=== PATIENT | male | born 1965 | race Caucasian/White ===

== ENCOUNTER → 2017-06-25 | Outpatient (CLI) | payer OTHER ==
--- NOTE | 2017-06-25 11:29 | RADIOLOGY REPORT (SQ) ---
EXAM DESCRIPTION: CT ABD/PELVIS WITH IV ORAL COMPLETED DATE/TIME: 06/25/2017 10:26 am REASON FOR STUDY: CECUM POLYP (D12.0), DISTAL SIGMOID COLON POLYP (D12.5) D12.5 BENIGN NEOPLASM OF SIGMOID COLON COMPARISON: None. TECHNIQUE: CT scan of the abdomen and pelvis performed using helical scanning technique with dynamic intravenous contrast injection. Patient drank Oral contrast. Images reviewed with lung, soft tissue, and bone windows. Reconstructed coronal and sagittal MPR images reviewed. Delayed images for evaluation of the urinary system also ac quired. All images stored on PACS. All CT scanners at this facility use dose modulation, iterative reconstruction, and/or weight based d osing when appropriate to reduce radiation dose to as low as reasonably achievable (ALARA). [facility]: Dose Right [facility]: CareDose [facility]: Dose Right [facility]: Teradose 4D [facility]: Adimab CONTRAST TYPE AND DOSE: contrast/concentration: Isovue 370.00 mg/ml; Total Contrast Delivered: 100.0 ml; Total Saline Delivered: 72.0 ml RENAL FUNCTION: Creatinine 0.9 RADIATION DOSE: Up-to-date CT equipment and radiation dose reduction techniques were employed. CTDIv ol: 10.1 - 11.8 mGy. DLP: 1207 mGy-cm.. LIMITATIONS: None. FINDINGS: LOWER CHEST: No significant findings. No nodules or infiltrates. LIVER: Normal size. No masses. No dilated ducts. SPLEEN: Normal size. No focal lesions. PANCREAS: No masses. No significant calcifications. No adjacent inflammation or peripancreatic fluid collections. Pancreatic duct not dilated. GALLBLADDER: No identified stones by CT criteria. No inflammatory changes to suggest cholecystitis. ADRENAL GLANDS: No significant masses or asymmetry. RIGHT KIDNEY AND URETER: No solid masses. No significant calcifications. No hydronephrosis or hyd roureter. LEFT KIDNEY AND URETER: No solid masses. No significant calcifications. No hydronephrosis or hydr oureter. AORTA AND VESSELS: No aneurysm. No dissection. Renal arteries, SMA, celiac without stenosis. RETROPERITONEUM: No retroperitoneal adenopathy, hemorrhage or masses. BOWEL AND PERITONEAL CAVITY: No masses or inflammatory changes. No free fluid or peritoneal masses. APPENDIX: Normal. PELVIS: No mass. No free fluid. Normal bladder. ABDOMINAL WALL: No masses. No hernias. BONES: No significant or acute findings. OTHER: No other significant finding. IMPRESSION: NO SIGNIFICANT OR ACUTE FINDING IN THE ABDOMEN OR PELVIS ON CT SCAN WITH IV CONTRAST. TECHNICAL DOCUMENTATION: JOB ID: [id number] Quality ID # [id number]: Final reports with documentation of one or more dose reduction techniques (e.g., Au tomated exposure control, adjustment of the mA and/or kV according to patient size, use of iterative reconstruction technique) 2010 [employer]- All Rights Reserved
== END ==
LOC: RAD 09:29
PROVIDERS: ATTEND Internal Medicine Gastroenterology
DX: D12.0 Benign neoplasm of cecum (principal); D12.5 Benign neoplasm of sigmoid colon
CPT/HCPCS: 74177; 82565

== ENCOUNTER → 2017-06-30 | Outpatient (CLI) | payer OTHER ==
--- NOTE | 2017-07-02 16:31 | RADIOLOGY REPORT (SQ) ---
EXAM DESCRIPTION: HAND BILATERAL 3 VIEWS COMPLETED DATE/TIME: 06/30/2017 4:46 pm REASON FOR STUDY: ARTHRITIS COMPARISON: None. NUMBER OF VIEWS: Three views of each hand. LIMITATIONS: None. FINDINGS: Right: Normal bone density. Old changes of open reduction internal fixation of proximal phalanx pinky finger. Mild flexion deformity at the PIP joint. No fracture, subluxation or dislocati on. No erosions. Joint spaces are maintained with grossly normal carpal alignment. Left: Normal bone density. No fracture or bone lesion. Joint spaces are generally relatively well preserved with normal carpal alignment. OTHER: No other significant finding. IMPRESSION: As above. TECHNICAL DOCUMENTATION: JOB ID: [id number]
== END ==
LOC: OD 16:08
PROVIDERS: ATTEND Obstetrics & Gynecology
DX: M19.042 Primary osteoarthritis, left hand (principal); M19.041 Primary osteoarthritis, right hand
CPT/HCPCS: 36415; 85652

== ENCOUNTER → 2017-08-30 | Outpatient (CLI) | payer OTHER ==
[2017-09-02 10:38] LABS: HEPATITIS C QUANTITATION HCV Not Detected IU/mL (.)
== END ==
LOC: OD 15:52
PROVIDERS: ATTEND Internal Medicine Gastroenterology
DX: B18.2 Chronic viral hepatitis C (principal); R74.0 Nonspecific elevation of levels of transaminase and lactic acid dehydrogenase [LDH]; D12.0 Benign neoplasm of cecum
CPT/HCPCS: 36415; 87522

== ENCOUNTER → 2017-10-01 | Outpatient (CLI) | payer OTHER ==
[2017-10-01 18:49] LABS: ALANINE AMINOTRANSFERASE 36 U/L (21-72); ALBUMIN 4.7 g/dL (3.5-5.0); ALKALINE PHOSPHATASE 69 U/L (38-126); ANION GAP 13 (5-19); ASPARTATE AMINO TRANSFERASE 25 U/L (17-59); BILIRUBIN,DIRECT 0.3 mg/dL (0.0-0.4); BILIRUBIN,TOTAL 0.4 mg/dL (0.2-1.3); BLOOD UREA NITROGEN 15 mg/dL (7-20); CALCIUM 9.9 mg/dL (8.4-10.2); CARBON DIOXIDE 28 mmol/L (22-30); CHLORIDE 106 mmol/L (98-107); CREATININE RESULT 0.99 mg/dL (0.52-1.25); GLUCOSE 86 mg/dL (75-110); POTASSIUM 5.3 mmol/L (3.6-5.0); TOTAL PROTEIN 7.3 g/dL (6.3-8.2)
== END ==
LOC: OD 17:47
PROVIDERS: ATTEND Physician Assistant Medical
DX: R06.02 Shortness of breath (principal)
CPT/HCPCS: 36415; 80053

== ENCOUNTER 2018-11-23 05:41 | Day surgery (SDC) | payer OTHER ==
[2018-11-16 10:12] LABS: HEMATOCRIT 38.8 % (37.9-51.0); HEMOGLOBIN 13.2 g/dL (13.5-17.0); MEAN CORPUSCULAR HEMOGLOBIN 28.5 pg (27.0-33.4); MEAN CORPUSCULAR VOLUME 84 fl (80-97); PLATELET COUNT 176 10^3/uL (150-450); RED BLOOD COUNT 4.62 10^6/uL (4.35-5.55); RED CELL DISTRIBUTION WIDTH 13.4 % (11.5-14.0)
[~2018-11-23 05:41] MED LIST: ACETAMINOPHEN 325 MG TABLET PO PRN; CEFAZOLIN 1 GM/D5W RTU 1 GM/50 ML RTUPB IV ONE; CEFAZOLIN 1 GM/D5W RTU 1 GM/50 ML RTUPB IV SCH; LACTATED RINGERS 1000 ML IV PRN; LIDOCAINE 0.5% INJ-PF (5 MG/ML) 50 ML SDV SUBCUT PRN
[2018-11-23] MEDS ORDERED: BUPIVACAINE HCL 0.25 % INJ/PF (2.5 MG/1 ML) 30 ML VIAL ONE (06:42)
[2018-11-23] MEDS ORDERED: HYDROMORPHONE HCL INJ/PF 2 MG/ML AMPULE ONE (06:54)
[2018-11-23] MEDS ORDERED: FENTANYL CITRATE INJ/PF 100 MCG/2 ML AMPUL ONE (06:54)
[2018-11-23] MEDS ORDERED: LIDOCAINE 2% INJ-PF (20 MG/ML) 10 ML AMPUL ONE (06:54)
[2018-11-23] MEDS ORDERED: MIDAZOLAM 2 MG/2 ML INJ ONE (06:54)
[2018-11-23] MEDS ORDERED: PROPOFOL INJ 200 MG/20 ML VIAL IV ONE (06:55)
[2018-11-23] MEDS ORDERED: ACETAMINOPHEN 1,000 MG/100 ML RTUPB IV ONE (06:55)
[2018-11-23] MEDS ORDERED: FENTANYL CITRATE INJ/PF 100 MCG/2 ML AMPUL IV PRN ×3 (07:54)
[2018-11-23] MEDS ORDERED: PROMETHAZINE HCL INJ 25 MG/1 ML VIAL IV PRN (07:54)
[2018-11-23] MEDS ORDERED: MEPERIDINE HCL/PF INJ 25 MG/1 ML DISP.SYRIN IV PRN (07:54)
[2018-11-23] MEDS ORDERED: DIPHENHYDRAMINE HCL 50 MG/ML VIAL IV PRN (07:54)
[2018-11-23] MEDS ORDERED: MORPHINE SULFATE 10 MG/ML INJ IV PRN (07:54)
[2018-11-23] MEDS: FENTANYL CITRATE INJ/PF 100 MCG/2 ML AMPUL ONE ×2 (08:57→09:02)
--- NOTE | 2018-11-23 08:57 | Discharge Summary ---
Discharge Summary (SDC) - Discharge Final Diagnosis: Supra umbilical hernia Date of Surgery: 11/23/18 Discharge Date: 11/23/18 Condition: Stable Treatment or Instructions: [facility] [address], [place] [address] Discharge Instructions: Laparoscopic Surgery 1. General Information: a. DO NOT DRIVE a car or operate dangerous machinery for 3-4 days or while taking narcotic pain pills. b. DO NOT consume alcohol, tranquilizers, sleeping medications or any non- prescribed medications for 24 hours unless approved by your doctor or as long as taking narcotic prescription medications. c. DO NOT make important decisions or sign any important papers for the first 24 hours after surgery. d. When discharged home the same day of surgery have a responsible person with you for the first night. 2. Activity Restrictions: 8 weeks. a. NO heavy lifting, straining abdominal muscles, bending over a lot, yard work, house work, or sports for [address] for 3-4 days or while taking percocet. c. It is fine to go for walks, up and down steps, ride in a car. d. Elevate your head when sleeping/resting. 3. Treatment: a. You may shower 24 hours after surgery, no baths or swimming for 2 weeks. Remove band-aids or dressings before shower but leave paper strips (steri-stri ps) on the skin to fall off on their own. If still on at postoperative visit they will be removed then. b. Drainage of fluid or blood is not unusual from an incision. If occurs, you can clean with peroxide and cotton ball daily and cover with dry gauze until the wound seals. c. If a lot of bleeding occurs, you can hold pressure with a gauze or cloth over the site for 10 minutes and it will usually stop. If bleeding continues you will need to call for possible evaluation in office or emergency room. 4. Medications: a. _Percocet_ may be taken for pain as needed, one tablets every 6 hours. Stop the narcotic when able since you cannot take it and drive, and they cause constipation. After Percocet presription is complete, you may take Toradol 10mg one pill by mouth every six hours as needed for pain. b. You should resume all normal medications unless a change is specified by your doctors. 5. Diet: Normal diet 6. The following may occur after laparoscopic surgery: a. Shoulder or upper back ache from retained gas that should resolve in 1-2 days b. Soreness and bruising at incision sites will resolve with time. c. Scrotal swelling (labia in women) and bruising is often seen after hernia surgery. d. Sore throat e. Fatigue may last days to weeks. f. Difficulty urinating may occur and may need to come into emergency room for urinary catheter placement. 7. Notify Physician If: a. Worsening or pain not improved with pain medication b. Persistent nausea and vomiting c. Fever above 101 d. Persistent bleeding or swelling at operative site e. Unable to urinate and uncomfortable bladder 6-8 hours after surgery 8..Follow Up Care: a. Schedule a follow up appointment with your doctor for 2 weeks. In the event of any postoperative problems or questions or you may call the office during business hours or the On-Call physician evenings and weekends at [facility]. [facility] I understand the instructions for my postoperative care as described above and a copy has been given to me. ___ Patient/Significant Other Witness Date Prescriptions: Ketorolac Tromethamine [Toradol 10 mg Tablet] 10 mg PO Q6HP PRN #15 tablet PRN Reason: Oxycodone HCl/Acetaminophen [Percocet 5-325 mg Tablet] 1 tab PO Q6 #15 tab Referrals: MCKENZIE SCANLON MD [Primary Care Provider] - Discharge Diet: As Tolerated Discharge Activity: No Lifting Over 10 Pounds, No Lifting/Push/Pulling, Walk Frequently Report the Following to Your Physician Immediately: Nausea, Vomiting, Increase in Pain, Fever over 101 Degrees, Unusual Bleeding, Redness, Drainage-Foul Smelling
--- NOTE | 2018-11-23 09:05 | Operative Report ---
Operative Report DATE OF SURGERY: 11/23/18 PREOPERATIVE DIAGNOSIS: ReCurrent abdominal wall hernia POSTOPERATIVE DIAGNOSIS: Same with scar tissue embedded in hernia sac OPERATION: 1. Laparoscopic debridement of scar tissue from hernia sac. 2. Transabdominal closure of fascial defect. 3. Intraperitoneal placement of Bard ventral light mesh 11.4 cm diameter SURGEON: RICH ZUÑIGA [employer] ATTENDANT: SAMANTA LUO ANESTHESIA: GA TISSUE REMOVED OR ALTERED: See below COMPLICATIONS: None ESTIMATED BLOOD LOSS: Scant INTRAOPERATIVE FINDINGS: See below PROCEDURE: The patient was taken from the preop holding area to the main operating room where general anesthesia was induced. Arms were abducted, abdomen prepped and draped in sterile fashion. Surgical plan surgical timeout were conducted Scars on the skin noted from previous laparoscopic surgery. The patient had a somewhat distorted, scarred umbilicus, and a masslike effect above the umbilicus. Numbing medicine 1% lidocaine was injected into the skin in the left upper quadrant left lower quadrant in the right lower quadrant. A Veress needle was inserted into the peritoneal cavity and left upper quadrant after making a stab wound with 11 blade. Pneumoperitoneum was established. Veress needle was removed, 5 mm port was established and a flexible 5 mm scope was inserted and under direct visualization 2 additional 5 mm ports were placed one on the left lower quadrant one in the right lower quadrant. Visualization of the peritoneal cavity revealed no evidence of visceral or vascular injury. The findings are significant for approximately 3 cm fascial defect above the umbilicus. Photos were taken. There was significant scar tissue and nonabsorbable suture at the level of the umbilicus consistent with previous surgery. We now proceeded to debulk the scar tissue and redundant fatty tissue in the inferior aspect of the hernia sac. This was accomplished by gentle traction and Electro cautery hook dissection. There was no evidence of mesh at this point. There may have been mesh inferior to this area but we never saw any foreign body. We debrided the scar tissue and fatty tissue, we now had exposure to the lateral edge which was raw but not bleeding. Photos were taken. We felt the primary closure transversely with transabdominal sutures will be appropriate. A kinza was made in the skin overlying the hernia, and using the percutaneous suture passer, 2 [id number] stitches were placed to close the fascial defect with #1 PDS suture. Knots were secured after pneumoperitoneum decompressed. This approximated the fascia satisfactorily. We now brought onto the field a non- 11.4 cm Bard ventral light mesh, oriented it in the appropriate direction, fixed it with 0 sutures at the 12, 3, 6, 9 o'clock position, rolled moistened it and brought up to the anterior abdominal wall. It was now splayed out in the peritoneal cavity, and then brought up against the anterior abdominal wall with the appropriate visceral side towards the viscera and the non-visceral side towards the peritoneum. Using the suture passer under direct visualization, suture was passed through the anterior abdominal wall at the respective 12, 3, 6, and 9:00 positions. Knots were secured after pneumoperitoneum decompressed. We then applied approximately 18 sure tack alex in a circumferential fashion. Mesh was opposed to the anterior abdominal wall in a satisfactory manner. Photos were taken. Inspection of the viscera revealed no injuries. We felt the operation was complete. Pneumoperitoneum was evacuated, ports removed, wounds closed with 3-0 Vicryl benzoin Steri-Strips. Patient was taken to recovery room, extubated, and and in stable condition. The physician special education educational assistant, Ms. Trevizo, provided assistance during this case by: Assisting and port insertion, retracting tissue, instillation of local anesthesia and closure of skin incisions.
[2018-11-23] MEDS ORDERED: OXYCODONE-ACETAMINOPHEN 5-325 MG TABLET PO PRN (09:34)
[2018-11-23] MEDS ORDERED: OXYCODONE-ACETAMINOPHEN 5-325 MG TABLET ONE (09:40)
[2018-11-23 12:15] VITALS: BP 121/75
[2018-11-23] MEDS ORDERED: ROCURONIUM BROMIDE INJ 50 MG/5 ML VIAL IV ONE (13:45)
[2018-11-23] MEDS ORDERED: DEXAMETHASONE SOD PHOSPHATE INJ 4 MG/1 ML VIAL ONE (13:45)
[2018-11-23] MEDS ORDERED: PHENYLEPHRINE HCL INJ/PF 10 MG/1 ML SDV ONE (13:45)
[2018-11-23] MEDS ORDERED: KETOROLAC TROMETHAMINE 60 MG/2 ML SDV ONE (13:45)
[2018-11-23] MEDS ORDERED: SUCCINYLCHOLINE CHLORIDE INJ 200 MG/10 ML VIAL ONE (13:45)
[2018-11-23] MEDS ORDERED: ONDANSETRON HCL INJ/PF 4 MG/2 ML SDV ONE (13:45)
== END 2018-11-23 10:45 | disposition home or self-care (01) ==
LOC: OROUT 05:41
PROVIDERS: ATTEND Surgery
DX: K43.0 Incisional hernia with obstruction, without gangrene (principal); L90.5 Scar conditions and fibrosis of skin; R01.1 Cardiac murmur, unspecified; F32.9 Major depressive disorder, single episode, unspecified; M19.90 Unspecified osteoarthritis, unspecified site; R06.02 Shortness of breath; Z86.19 Personal history of other infectious and parasitic diseases; Z79.82 Long term (current) use of aspirin; Q25.3 Supravalvular aortic stenosis
CPT/HCPCS: 36415; 85027; 49653; C1781; J2250; J0690; J3490 ×2; J1100; J1885; J3010; J1170; J2370; J0330; J2405; J2704; J0131; 752

== ENCOUNTER → 2019-03-31 | Outpatient (CLI) | payer OTHER ==
[2019-03-31 12:23] LABS: HEMATOCRIT 39.8 % (37.9-51.0); HEMOGLOBIN 13.3 g/dL (13.5-17.0); MEAN CORPUSCULAR HEMOGLOBIN 27.2 pg (27.0-33.4); MEAN CORPUSCULAR HGB CONC 33.4 g/dL (32.0-36.0); MEAN CORPUSCULAR VOLUME 82 fl (80-97); PLATELET COUNT 182 10^3/uL (150-450); RED BLOOD COUNT 4.89 10^6/uL (4.35-5.55); RED CELL DISTRIBUTION WIDTH 13.8 % (11.5-14.0); WHITE BLOOD COUNT 3.8 10^3/uL (4.0-10.5)
[2019-03-31 12:44] LABS: ALANINE AMINOTRANSFERASE 39 U/L (21-72); ALBUMIN 4.1 g/dL (3.5-5.0); ALKALINE PHOSPHATASE 48 U/L (38-126); ANION GAP 11 (5-19); ASPARTATE AMINO TRANSFERASE 24 U/L (17-59); BILIRUBIN,DIRECT 0.3 mg/dL (0.0-0.4); BILIRUBIN,TOTAL 0.5 mg/dL (0.2-1.3); BLOOD UREA NITROGEN 10 mg/dL (7-20); CALCIUM 9.3 mg/dL (8.4-10.2); CARBON DIOXIDE 29 mmol/L (22-30); CHLORIDE 100 mmol/L (98-107); GLUCOSE 101 mg/dL (75-110); POTASSIUM 4.1 mmol/L (3.6-5.0); SODIUM 140.4 mmol/L (137-145); TOTAL PROTEIN 6.9 g/dL (6.3-8.2)
== END ==
LOC: OD 11:23
PROVIDERS: ATTEND Obstetrics & Gynecology
DX: K52.9 Noninfective gastroenteritis and colitis, unspecified (principal); K62.5 Hemorrhage of anus and rectum
CPT/HCPCS: 36415; 80053; 83690; 85027

== ENCOUNTER → 2019-04-11 | Outpatient (CLI) | payer OTHER ==
[2019-04-11 11:29] LABS: ALANINE AMINOTRANSFERASE 30 U/L (21-72); ALBUMIN 4.6 g/dL (3.5-5.0); ALKALINE PHOSPHATASE 68 U/L (38-126); ASPARTATE AMINO TRANSFERASE 22 U/L (17-59); BILIRUBIN,DIRECT 0.3 mg/dL (0.0-0.4); BILIRUBIN,TOTAL 0.5 mg/dL (0.2-1.3); LIPASE 508.1 U/L (23-300); TOTAL PROTEIN 7.4 g/dL (6.3-8.2)
== END ==
LOC: OD 10:13
PROVIDERS: ATTEND Obstetrics & Gynecology
DX: Z11.59 Encounter for screening for other viral diseases (principal)
CPT/HCPCS: 36415; 80076; 83690

== ENCOUNTER → 2019-04-14 | Outpatient (CLI) | payer OTHER ==
[2019-04-14 09:48] LABS: ALANINE AMINOTRANSFERASE 31 U/L (21-72); ALBUMIN 4.4 g/dL (3.5-5.0); ALKALINE PHOSPHATASE 59 U/L (38-126); ANION GAP 11 (5-19); ASPARTATE AMINO TRANSFERASE 21 U/L (17-59); BILIRUBIN,DIRECT 0.2 mg/dL (0.0-0.4); BILIRUBIN,TOTAL 0.6 mg/dL (0.2-1.3); BLOOD UREA NITROGEN 14 mg/dL (7-20); CALCIUM 9.8 mg/dL (8.4-10.2); CARBON DIOXIDE 28 mmol/L (22-30); CHLORIDE 104 mmol/L (98-107); GLUCOSE 95 mg/dL (75-110); LIPASE 301.2 U/L (23-300); POTASSIUM 4.9 mmol/L (3.6-5.0); SODIUM 142.8 mmol/L (137-145); TOTAL PROTEIN 7.1 g/dL (6.3-8.2)
== END ==
LOC: OD 09:06
PROVIDERS: ATTEND Obstetrics & Gynecology
DX: R94.5 Abnormal results of liver function studies (principal)
CPT/HCPCS: 36415; 80053; 83690

== ENCOUNTER 2019-04-28 08:36 | Day surgery (SDC) | payer OTHER ==
[~2019-04-28 08:36] MED LIST changes: -ACETAMINOPHEN 325 MG TABLET PO PRN; -CEFAZOLIN 1 GM/D5W RTU 1 GM/50 ML RTUPB IV ONE; -CEFAZOLIN 1 GM/D5W RTU 1 GM/50 ML RTUPB IV SCH; -LACTATED RINGERS 1000 ML IV PRN; -LIDOCAINE 0.5% INJ-PF (5 MG/ML) 50 ML SDV SUBCUT PRN; +PROPOFOL INJ 200 MG/20 ML VIAL IV ONE
[2019-04-28 10:33] VITALS: BP 100/65
--- NOTE | 2019-04-28 11:26 | Operative Report ---
Operative Report DATE OF SURGERY: 04/28/19 Operative Report: The risks, benefits and alternatives of the procedure including the risk of bleeding, perforation requiring surgery have been explained to the patient in detail and informed consent has been obtained. The patient was brought back to the endoscopy suite and placed in the left, lateral decubital position. Timeout was called. Propofol medication is administered. A rectal examination is done which did not reveal any masses, tears or fissures. An Olympus videoscope was introduced into the patient's rectum. The scope was then carefully advanced all the way to the anastomotic site. Prep was good. The scope was then sequentially pulled back through the various distal segments of the colon. Retroflexion maneuvers performed. The risks benefits and alternatives of the procedure explained to the patient in detail and informed consent is obtained.A GIF Olympus video scope was inserted into the patient's mouth and hypopharynx, the esophagus is identified intubated and insufflated, the scope was then advanced through the esophagus stomach and duodenum, retroflexion maneuver is done ,the esophagus stomach and first and second portions of the duodenum examined. PREOPERATIVE DIAGNOSIS: Change in bowel habits. Blood in stool. Epigastric pain POSTOPERATIVE DIAGNOSIS: Irritation on the small bowel side of the anastomosis status post biopsy. Internal hemorrhoids. Gastritis status post biopsy rule out Helicobacter pylori OPERATION: Colonoscopy with biopsy. EGD with biopsy SURGEON: BEN BRENNER ANESTHESIA: LMAC TISSUE REMOVED OR ALTERED: As noted above. COMPLICATIONS: None. ESTIMATED BLOOD LOSS: None. INTRAOPERATIVE FINDINGS: As noted above. PROCEDURE: Patient tolerated the procedure well. No immediate postprocedure complications are noted. Patient is discharged in good condition. Discharge date 04/28/2019. Discharge diet: Regular. Discharge activity: Regular. 2 to 3-week follow-up to discuss findings. Patient is instructed to call the office or proceed to the emergency room should there be any further questions. 5-year surveillance colonoscopy.
== END 2019-04-28 10:42 | disposition home or self-care (01) ==
LOC: END 08:36
PROVIDERS: ATTEND Internal Medicine Gastroenterology
DX: K29.50 Unspecified chronic gastritis without bleeding (principal); R19.4 Change in bowel habit; K64.8 Other hemorrhoids; K52.9 Noninfective gastroenteritis and colitis, unspecified; Z80.0 Family history of malignant neoplasm of digestive organs; R10.13 Epigastric pain; Z79.82 Long term (current) use of aspirin; Z79.899 Other long term (current) drug therapy
CPT/HCPCS: 43239; 45380; 88305 ×2; J2704; 813

== ENCOUNTER 2019-08-01 23:07 | Observation (INO) | payer OTHER ==
[2019-08-02] MEDS ORDERED: ASPIRIN 81 MG TABLET, CHEWABLE PO ONE (00:07)
--- NOTE | 2019-08-02 00:12 | ER Document Report ---
HPI - HPI Patient complains to provider of: chest pain Time Seen by Provider: 08/01/19 23:51 Pain Level: 5 Context: 54-year-old male with a history of hypertension, aortic stenosis, sleep apnea, hyperlipidemia, atrial fibrillation rate controlled with metoprolol and anticoagulated with Eliquis, here for an episode of left-sided chest burning/ pain awoke him out of his sleep around 10:40 PM. He states it felt a little like reflux however he was more to the left than his usual central reflux pain. He states he then sat up out of bed after taking his CPAP machine off, and felt a little nauseous and dizzy so he asked his to bring him in for evaluation. He was recently placed on Eliquis and metoprolol about 2 weeks ago for new onset A. fib. He did have a stress test 1 week ago outpatient at [facility], pcp is dr scanlon, but does not know his results yet. He does follow with Dr. Rios, cardiology, in [place], [place]. He states they had to decrease his metoprolol dose in half last week because he was bradycardic. No other changes in medication or diet. Pt denies any other prior personal cardiac history. no syncope. no palpitations. no hx of mi, cva, tia, CHF, or cad. no ripping or tearing sensation. denies any other blood thinners. No prior history of blood clots. No recent long distance travel/immobilization, recent surgery, exogenous hormone use, hemoptysis, history of cancer, or calf pain/swelling. No prior history of arrhythmias. No other complaints at this time. no sp or dizziness currently. Associated Symptoms: Chest pain Exacerbated by: Sitting Relieved by: Remaining still Similar symptoms previously: No Recently seen / treated by doctor: Yes - ROS Systems Reviewed and Negative: Yes All other systems reviewed and negative - to include 10 systems unless mentioned in the hpi Past Medical History - General Information source: Patient - Social History Smoking Status: Former Smoker Chew tobacco use (# tins/day): No Frequency of alcohol use: None Drug Abuse: None Lives with: Spouse/Significant other Family History: Reviewed & Not Pertinent Patient has suicidal ideation: No Patient has homicidal ideation: No - Past Medical History Cardiac Medical History: Reports: Hx Atrial Fibrillation, Hx Hypercholester olemia, Hx Hypertension, Hx Heart Murmur - aortic stenosis-stable Denies: Hx Congestive Heart Failure, Hx Coronary Artery Disease, Hx DVT, Hx Heart Attack, Hx Peripheral Vascular Disease, Hx Pulmonary Embolism Pulmonary Medical History: Reports: Hx Sleep Apnea - compliant with cpap Denies: Hx Asthma, Hx Bronchitis, Hx COPD, Hx Pneumonia Neurological Medical History: Denies: Hx Cerebrovascular Accident, Hx Seizures Endocrine Medical History: Denies: Hx Diabetes Mellitus Type 1, Hx Diabetes Mellitus Type 2, Hx Hyperthyroidism, Hx Hypothyroidism Renal/ Medical History: Denies: Hx Kidney Stones Musculoskeletal Medical History: Denies Hx Arthritis Past Surgical History: Reports: Hx Orthopedic Surgery - Right small finger due to fracture.. Denies: Hx Pacemaker - Immunizations Immunizations up to date: Yes Hx Diphtheria, Pertussis, Tetanus Vaccination: Yes Vertical Provider Document - CONSTITUTIONAL Agree With Documented VS: Yes Exam Limitations: No Limitations General Appearance: WD/WN Notes: >>>> PHYSICAL_EXAM: GENERAL_APPEARANCE: well_nourished, alert, cooperative, no_acute_distress, no_obvious_discomfort. pleasant, middle aged white male, smiling, speaking in full sentences, in no sign of pain or resp distress, at bedside VITALS: reviewed, see vital signs table. HEAD: no_swelling\tenderness on the head. normocephalic. atraumatic. no andrea signs. no raccoons eyes. EARS: canals_clear_bilat, TMs_clear. EYES: PERRL, EOMI, conjunctiva_clear. NOSE: no_nasal_discharge. MOUTH: (-)decreased moisture. THROAT: no_tonsilar_inflammation, no_airway_obstruction. no_lymphadenopathy NECK: supple, no_neck_tenderness, (-)thyromegaly. full rom. full strength. no jvd. no carotid bruit. no meningeal signs. BACK: no_back_tenderness. CHEST_WALL: no_chest_tenderness. no overlying skin changes LUNGS: no_wheezing, ctab (-)accessory muscle use, good air exchange bilateral. HEART: normal_rate, normal_rhythm, ABDOMEN: normal_BS, soft, no_abd_tenderness, (-)guarding, (-)rebound, no_organomegaly, no distension or peritoneal signs. no cva ttp EXTREMITIES: strength 5/5 in all_extremities, good pulses in all_extremities, no_swelling\tenderness in the extremities, no_edema. full rom. normal gait. good pulses. brisk cap refill. 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 neg chito sign NEURO: motor and sensation intact, cranial nerves 2-12 intact, cerebellar fxn intact SKIN: warm, dry, good_color, no_rash. MENTAL_STATUS: speech_clear, oriented_X_3, normal_affect, responds_appropriately to questions. - INFECTION CONTROL TRAVEL OUTSIDE OF THE [place] IN LAST 30 DAYS: No Course - Re-evaluation Re-evalutation: 08/02/19 00:11 Pt here for now resolved chest pain, dizziness, nausea. and lasted briefly. His labs were unremarkable other than a mildly elevated CK. He is also slightly orthostatic. he was given fluids. He continued to remain asymptomatic. he is on Eliquis and metoprolol for atrial fibrillation. He endorses compliance with this. He had a stress test done last week however he does not know the results of this. I do not have access to these records for review either currently. He has follow-up August 23 with his PCP. Scallop Binder is Dr. Rios. He EKG was unremarkable per ED attending, Dr. Jenkins. He was in atrial fibrillation with a rate of 60 bpm on the monitor however. He was given the listed medications per triage protocol. Chest x-ray was negative per radiology and re viewed by myself. Patient informed of his findings. Case discussed with hospitalist, Dr. Weiss, who graciously agreed to admit the patient for further work-up and treatment. Care transferred to hospitalist in stable condition. Please refer to their note for further details of the visit. heart score: 4 On reexam, pt improved with tx listed. remained stable. nontoxic. well appearing. pain controlled. tolerating po. requesting to go home. case discussed with ER Attending, Dr. jenkins, who directed and agrees with plan of care and advised no further workup indicated at this time and pt is stable for dc home with close f/u with pcp/specialist. Documentation achieved through voice recording which may lead to some occasional accidental typographical errors. Extensive efforts have been made to proof read documentation to make sure these are the least as possible. 08/02/19 02:20 Category Date Time Status Continuous Cardiac Monitoring (ED) CONTINUOUS Care 08/02/19 00:07 Completed EKG Documentation STAT Care 08/01/19 23:09 Completed Orthostatic Vital Sign (ED) NOW Care 08/02/19 01:02 Ordered Oxygen (ED) Nasal Cannula 2 lpm Care 08/02/19 00:07 Active Pulse Oximeter Continuous (ED) CONTINUOUS Care 08/02/19 00:07 Active Saline Lock (ED) NOW Care 08/02/19 00:07 Active CHEST 2 VIEWS [RAD] Stat Exams 08/02/19 00:07 Ordered CBC WITH DIFF [HEME] Stat Lab 08/02/19 00:08 Completed COMPREHENSIVE METABOLIC PANEL [CHEM] Stat Lab 08/02/19 00:08 Received CREATINE KINASE MB [CHEM] Stat Lab 08/02/19 00:08 Received CREATINE KINASE [CHEM] Stat Lab 08/02/19 00:08 Received FREE T3 [CHEM] Stat Lab 08/02/19 01:02 Ordered LIPASE [CHEM] Stat Lab 08/02/19 00:08 Received MAGNESIUM [CHEM] Stat Lab 08/02/19 01:02 Ordered PROTHROMBIN TIME/INR [COAG] Stat Lab 08/02/19 00:08 Completed T4 [FREE T4 (FREE THYROXINE)] [CHEM] Stat Lab 08/02/19 01:02 Ordered THYROID STIMULATING HORMONE [CHEM] Stat Lab 08/02/19 01:02 Ordered TROPONIN I [CHEM] Stat Lab 08/02/19 00:08 Received TROPONIN I [CHEM] Stat Lab 08/02/19 04:07 Ordered URINALYSIS [URIN] Stat Lab 08/02/19 00:28 Uncollected Aspirin [Aspirin 81 mg Chewable Tablet] Med 08/02/19 00:07 Discontinued 324 mg PO NOW ONE Normal Saline 1000 ml [NaCl 0.9% 1000 ml IV Soln] 1,000 Med 08/02/19 01:31 Ordered ml IV BOLUS EKG ER ONLY [ER] Stat Oth 08/01/19 Active 08/02/19 02:23 08/02/19 02:48 - Vital Signs Vital signs: Temp Pulse Resp BP Pulse Ox 98.6 F 66 20 127/71 H 99 08/01/19 23:24 08/01/19 23:24 08/01/19 23:24 08/01/19 23:24 08/01/19 23:24 08/02/19 02:20 Temp Pulse Pulse Pulse Pulse Resp BP 08/02/19 01:19 64 60 61 08/02/19 00:07 08/02/19 00:01 19 124/76 08/02/19 00:00 21 H 08/01/19 23:47 22 H 08/01/19 23:24 98.6 F 66 20 BP BP BP BP Pulse Ox 08/02/19 01:19 132/93 H 120/78 122/74 08/02/19 00:07 98 08/02/19 00:01 100 08/02/19 00:00 100 08/01/19 23:47 98 08/01/19 23:24 127/71 H 99 - Laboratory Result Diagrams: 08/02/19 00:08 08/02/19 00:08 Laboratory results interpreted by me: 08/02/19 02:29 Category Date Time Status Continuous Cardiac Monitoring (ED) CONTINUOUS Care 08/02/19 00:07 Completed EKG Documentation STAT Care 08/01/19 23:09 Completed Orthostatic Vital Sign (ED) NOW Care 08/02/19 01:02 Ordered Oxygen (ED) Nasal Cannula 2 lpm Care 08/02/19 00:07 Active Pulse Oximeter Continuous (ED) CONTINUOUS Care 08/02/19 00:07 Active Saline Lock (ED) NOW Care 08/02/19 00:07 Active CHEST 2 VIEWS [RAD] Stat Exams 08/02/19 00:07 Ordered CBC WITH DIFF [HEME] Stat Lab 08/02/19 00:08 Completed COMPREHENSIVE METABOLIC PANEL [CHEM] Stat Lab 08/02/19 00:08 Received CREATINE KINASE MB [CHEM] Stat Lab 08/02/19 00:08 Received CREATINE KINASE [CHEM] Stat Lab 08/02/19 00:08 Received FREE T3 [CHEM] Stat Lab 08/02/19 01:02 Ordered LIPASE [CHEM] Stat Lab 08/02/19 00:08 Received MAGNESIUM [CHEM] Stat Lab 08/02/19 01:02 Ordered PROTHROMBIN TIME/INR [COAG] Stat Lab 08/02/19 00:08 Completed T4 [FREE T4 (FREE THYROXINE)] [CHEM] Stat Lab 08/02/19 01:02 Ordered THYROID STIMULATING HORMONE [CHEM] Stat Lab 08/02/19 01:02 Ordered TROPONIN I [CHEM] Stat Lab 08/02/19 00:08 Received TROPONIN I [CHEM] Stat Lab 08/02/19 04:07 Ordered URINALYSIS [URIN] Stat Lab 08/02/19 00:28 Uncollected Aspirin [Aspirin 81 mg Chewable Tablet] Med 08/02/19 00:07 Discontinued 324 mg PO NOW ONE Normal Saline 1000 ml [NaCl 0.9% 1000 ml IV Soln] 1,000 Med 08/02/19 01:31 Ordered ml IV BOLUS EKG ER ONLY [ER] Stat Oth 08/01/19 Active - Diagnostic Test Radiology reviewed: Image reviewed, Reports reviewed Radiology results interpreted by me: 08/02/19 02:20 Chest X-Ray 08/02/19 00:07 IMPRESSION: Clear lungs. - EKG Interpretation by Me EKG shows normal: Sinus rhythm Rate: Normal Rhythm: NSR - 66 bpm, borderline q waves, no stemi, reviewed by dr jenkins Discharge - Discharge Clinical Impression: Dizziness, Nausea, Orthostatic hypotension, History of atrial fibrillation, History of aortic stenosis Chest pain Qualifiers: Chest pain type: unspecified Qualified Code(s): R07.9 - Chest pain, unspecified Condition: Good Disposition: ADMITTED OBSERVATION Admitting Provider: Isela (Hospitalist) - agreed to accept the pt at 2:45am for further workup and tx Unit Admitted: Telemetry Referrals: MCKENZIE SCANLON MD [Primary Care Provider] - Follow up as needed
[2019-08-02 00:29] LABS: ABSOLUTE BASOPHILS # (AUTO) 0.1 10^3/uL (0.0-0.2); ABSOLUTE EOSINOPHILS # (AUTO) 0.2 10^3/uL (0.0-0.6); ABSOLUTE LYMPHOCYTES (AUTO) 2.4 10^3/uL (0.5-4.7); ABSOLUTE MONOCYTES (AUTO) 0.6 10^3/uL (0.1-1.4); ABSOLUTE NEUT (AUTO) 3.6 10^3/uL (1.7-8.2); BASOPHILS % (AUTO) 0.7 % (0-2); EOSINOPHILS % (AUTO) 2.7 % (0-6); HEMATOCRIT 38.8 % (37.9-51.0); HEMOGLOBIN 13.1 g/dL (13.5-17.0); LYMPHOCYTES % (AUTO) 34.5 % (13-45); MEAN CORPUSCULAR HGB CONC 33.8 g/dL (32.0-36.0); MEAN CORPUSCULAR VOLUME 83 fl (80-97); MONOCYTES % (AUTO) 8.7 % (3-13); PLATELET COUNT 187 10^3/uL (150-450); RED BLOOD COUNT 4.68 10^6/uL (4.35-5.55); RED CELL DISTRIBUTION WIDTH 13.6 % (11.5-14.0); SEGMENTED NEUTROPHILS % (AUTO) 53.4 % (42-78); TOTAL CELLS COUNTED % (AUTO) 100 %; WHITE BLOOD COUNT 6.8 10^3/uL (4.0-10.5)
[2019-08-02 00:37] LABS: INTERNATIONAL RATION (INR) 1.19; PROTHROMBIN TIME 15.1 SEC (11.4-15.4)
[2019-08-02 00:47] LABS: ALBUMIN 4.4 g/dL (3.5-5.0); ALKALINE PHOSPHATASE 60 U/L (38-126); ANION GAP 9 (5-19); ASPARTATE AMINO TRANSFERASE 25 U/L (17-59); BILIRUBIN,DIRECT 0.1 mg/dL (0.0-0.4); BILIRUBIN,TOTAL 0.4 mg/dL (0.2-1.3); BLOOD UREA NITROGEN 17 mg/dL (7-20); CALCIUM 9.5 mg/dL (8.4-10.2); CARBON DIOXIDE 27 mmol/L (22-30); CHLORIDE 103 mmol/L (98-107); CREATINE KINASE 285 U/L (55-170); GLUCOSE 103 mg/dL (75-110); POTASSIUM 3.8 mmol/L (3.6-5.0); TOTAL PROTEIN 6.8 g/dL (6.3-8.2)
[2019-08-02 00:58] LABS: CREATINE KINASE MB 1.52 ng/mL (<4.55); TROPONIN I < 0.012 ng/mL
[2019-08-02] MEDS ORDERED: NORMAL SALINE 1000 ML 1,000 ML IV ONE (01:31)
[2019-08-02 01:33] LABS: APPEARANCE,URINE CLEAR; BILIRUBIN,URINE NEGATIVE (NEGATIVE); COLOR,URINE YELLOW; GLUCOSE, URINE NEGATIVE (NEGATIVE); KETONES,URINE NEGATIVE (NEGATIVE); LEUKOCYTE ESTERASE,URINE NEGATIVE (NEGATIVE); NITRITE,URINE NEGATIVE (NEGATIVE); PROTEIN,URINE NEGATIVE (NEGATIVE); URINE SPECIFIC GRAVITY 1.017; UROBILINOGEN,URINE NEGATIVE mg/dL (<2.0)
--- NOTE | 2019-08-02 01:35 | RADIOLOGY REPORT (SQ) ---
CLINICAL HISTORY: cp COMPARISON: April 28, 2016. TECHNIQUE: XR CHEST 2 VIEWS 08/02/2019 12:07 AM CDT FINDINGS: Cardiac silhouette is normal in size. Lungs are clear without consolidation, atelectasis, mass or edema. There is no pleural effusion. There is no pneumothorax. There are no acute osseous findings. IMPRESSION: Clear lungs.
[2019-08-02 02:05] LABS: FREE T3 3.99 pg/mL (2.77-5.27); FREE T4 (FREE THYROXINE) 0.74 ng/dL (0.78-2.19)
[2019-08-02 02:19] LABS: THYROID STIMULATING HORMONE 2.18 uIU/mL (0.47-4.68)
[2019-08-02] MEDS ORDERED: NITROGLYCERIN 2% OINTMENT 1 GM PACKET TP ONE (02:40)
[2019-08-02] MEDS ORDERED: MAGNESIUM HYDROXIDE SUSP 30 ML UDCUP PO PRN (03:47)
[2019-08-02] MEDS ORDERED: MAG HYDROX/AL HYDROX/SIMETH SUSP 30 ML UDCUP PO PRN (03:47)
[2019-08-02] MEDS ORDERED: HYDRALAZINE HCL INJ/PF 20 MG/1 ML SDV IV PRN (03:47)
[2019-08-02] MEDS ORDERED: ACETAMINOPHEN 325 MG TABLET PO PRN (03:47)
[2019-08-02] MEDS ORDERED: MORPHINE SULFATE 10 MG/ML INJ IV PRN (03:47)
[2019-08-02] MEDS ORDERED: ONDANSETRON 4 MG TAB.RAPDIS PO PRN (03:48)
[2019-08-02] MEDS ORDERED: ONDANSETRON HCL INJ/PF 4 MG/2 ML SDV IV PRN (03:48)
--- NOTE | 2019-08-02 04:16 | PDOC H&P ---
History of Present Illness Admission Date/PCP: 08/02/19 02:57 MCKENZIE SCANLON MD Patient complains of: Chest pain History of Present Illness: INGRID NAIK is a 54 year old male who presented to the emergency room with acute chest pain. Patient admits that he woke from sleep at 22:40 with the tomlinson dden onset of a burning pain in his left central chest. The pain was continuous and of moderate to severe intensity without radiation. The pain was accompanied by acute mild nausea, dyspnea and dizziness/lightheadedness with assuming the sitting position. He admits similar prior symptoms with his gastroesophageal reflux disease although the location of the chest pain is different (lower and more leftward) than his typical reflux pain symptoms. He admits that his nausea and dizziness/lightheadedness ("like I was going to pass out") were worsened by assuming the upright sitting position and relieved by lying flat. He has not identified any aggravating or ameliorating factors for his chest pain. In the emergency room he was found to have an EKG and cardiac enzymes which showed no evidence of acute myocardial ischemia or injury. Patient was subsequently admitted to observation status for further evaluation and treatment. Past Medical History Cardiac Medical History: Reports: Atrial Fibrillation, Hyperlipidema, Hypertension, Heart Murmur - aortic stenosis-stable, Other - Valvular heart disease Denies: Congestive Heart Failure, Coronary Artery Disease, DVT, Myocardial Infarction, Peripheral Vascular Disease, Pulmonary Embolism Pulmonary Medical History: Reports: Sleep Apnea - compliant with cpap Denies: Asthma, Bronchitis, Chronic Obstructive Pulmonary Disease (COPD), Pneumonia, Respiratory Failure, Tuberculosis EENT Medical History: Denies: Cataracts, Ears - Hearing aids Neurological Medical History: Denies: Hemorrhagic CVA, Ischemic CVA, Seizures Endocrine Medical History: Denies: Diabetes Mellitus Type 1, Diabetes Mellitus Type 2, Hyperthyroidism, Hypothyroidism Renal/ Medical History: Denies: Chronic Kidney Disease, Nephrolithiasis Malignancy Medical History: Reports: None GI Medical History: Reports: Gastroesophageal Reflux Disease Denies: Cirrhosis, Crohn's Disease, Hepatitis, Peptic Ulcer Disease, Ulcerative Colitis Musculoskeltal Medical History: Denies: Arthritis, Gout Skin Medical History: Denies: Eczema, Psoriasis Psychiatric Medical History: Reports: Tobacco Dependency Denies: Alcohol Dependency, Substance Abuse Traumatic Medical History: Reports: None Hematology: Denies: Anemia, Bleeding Tendencies Infectious Medical History: Reports: None Past Surgical History Past Surgical History: Reports: Herniorrhaphy, Orthopedic Surgery - Right 5th finger fracture repair., Other - Partial colectomy for excision of a colonic mass Social History Information Source: Patient Lives with: Spouse/Significant other Smoking Status: Former Smoker - Currently chews smokeless tobacco Frequency of Alcohol Use: Rare Hx Recreational Drug Use: No Drugs: None Hx Prescription Drug Abuse: No - Advance Directive Resuscitation Status: Full Code Surrogate healthcare decision maker:: Raquel Naik Family History Family History: CAD, DM, Hypertension, Other - Multiple sclerosis. denies: Malignancy Parental Family History Reviewed: Yes Children Family History Reviewed: No Sibling(s) Family History Reviewed.: Yes Medication/Allergy Home Medications: Aspirin [Aspirin 81 mg Chewable Tablet] 1 tab PO DAILY 11/11/18 Multivitamin,Ther and Minerals [Vitamin and Minerals] 1 tab PO DAILY 11/11/18 Rosuvastatin Calcium 10 mg PO QHS 11/11/18 Allergies/Adverse Reactions: chloraphil Allergy (Intermediate, Uncoded 08/01/19 23:09) Hives Review of Systems Constitutional: ABSENT: chills, fever(s) Eyes: ABSENT: visual disturbances, other - Eye pain Ears: ABSENT: hearing changes, other - Ear pain Nose, Mouth, and Throat: ABSENT: mouth pain, sore throat Cardiovascular: PRESENT: as per HPI, chest pain. ABSENT: dyspnea on exertion, edema, orthropnea, palpitations Respiratory: PRESENT: as per HPI, dyspnea. ABSENT: cough Gastrointestinal: PRESENT: as per HPI, nausea. ABSENT: abdominal pain, constipation, diarrhea, vomiting Genitourinary: ABSENT: dysuria, hematuria Musculoskeletal: ABSENT: back pain, joint swelling Integumentary: ABSENT: pruritus, rash Neurological: PRESENT: as per HPI, dizziness. ABSENT: confusion, convulsions, focal weakness, memory loss, syncope Psychiatric: ABSENT: anxiety, depression Endocrine: ABSENT: cold intolerance, heat intolerance Hematologic/Lymphatic: ABSENT: easy bleeding, easy bruising Allergic/Immunologic: ABSENT: seasonal rhinorrhea Physical Exam Vital Signs: Temp Pulse Resp BP Pulse Ox 98.6 F 61 19 122/74 98 08/01/19 23:24 08/02/19 01:19 08/02/19 00:01 08/02/19 01:19 08/02/19 00:07 Intake & Output 07/31/19 08/01/19 08/02/19 23:59 23:59 23:59 Weight 96.9 kg General appearance: ABSENT: no acute distress, cooperative Head exam: ABSENT: atraumatic, normocephalic Eye exam: PRESENT: conjunctiva pink. ABSENT: conjunctival injection, scleral icterus Ear exam: PRESENT: normal external ear exam. ABSENT: bleeding, drainage Mouth exam: PRESENT: dry mucosa, neck supple Neck exam: ABSENT: thyromegaly, tracheal deviation Respiratory exam: PRESENT: clear to auscultation stone, symmetrical, unlabored Cardiovascular exam: PRESENT: irregular rhythm - Irregularly irregular rate and rhythm, systolic murmur - Midsystolic crescendo decrescendo grade 3 murmur heard best at the aortic root with radiation to the neck. ABSENT: clicks, gallop, rubs Pulses: PRESENT: normal radial pulses, normal dorsalis pedis pul Vascular exam: PRESENT: normal capillary refill. ABSENT: pallor GI/Abdominal exam: PRESENT: normal bowel sounds, soft Rectal exam: PRESENT: deferred Extremities exam: ABSENT: joint swelling, pedal edema Musculoskeletal exam: ABSENT: deformity, dislocation Neurological exam: PRESENT: alert, oriented to person, oriented to place, oriented to time, oriented to situation, CN II-XII grossly intact. ABSENT: motor sensory deficit Psychiatric exam: PRESENT: appropriate affect, normal mood Skin exam: PRESENT: dry, intact, warm. ABSENT: jaundice, rash, urticaria Results Laboratory Results: 08/02/19 00:08 08/02/19 00:08 08/02/19 08/02/19 08/02/19 00:08 00:08 00:08 WBC 6.8 RBC 4.68 Hgb 13.1 L Hct 38.8 MCV 83 MCH 28.0 MCHC 33.8 RDW 13.6 Plt Count 187 Seg Neutrophils % 53.4 Sodium 139.1 Potassium 3.8 Chloride 103 Carbon Dioxide 27 Anion Gap 9 BUN 17 Creatinine 0.87 Est GFR ( Amer) > 60 Glucose 103 Calcium 9.5 Magnesium Total Bilirubin 0.4 AST 25 Alkaline Phosphatase 60 Total Protein 6.8 Albumin 4.4 Lipase 82.7 TSH Free T4 Free T3 pg/mL Urine Color Urine Appearance Urine pH Ur Specific [place] Urine Protein Urine Glucose (UA) Urine Ketones Urine Blood Urine Nitrite Ur Leukocyte Esterase Urine WBC (Auto) Urine RBC (Auto) 08/02/19 08/02/1908/02/19 00:08 00:08 01:08 WBC RBC Hgb Hct MCV MCH MCHC RDW Plt Count Seg Neutrophils % Sodium Potassium Chloride Carbon Dioxide Anion Gap BUN Creatinine Est GFR ( Amer) Glucose Calcium Magnesium 2.3 Total Bilirubin AST Alkaline Phosphatase Total Protein Albumin Lipase TSH 2.18 Free T4 0.74 L Free T3 pg/mL 3.99 Urine Color YELLOW Urine Appearance CLEAR Urine pH 6.0 Ur Specific [place] 1.017 Urine Protein NEGATIVE Urine Glucose (UA) NEGATIVE Urine Ketones NEGATIVE Urine Blood SMALL H Urine Nitrite NEGATIVE Ur Leukocyte Esterase NEGATIVE Urine WBC (Auto) 1 Urine RBC (Auto) 1 08/02/19 08/02/19 00:08 00:08 Creatine Kinase 285 H CK-MB (CK-2) 1.52 Troponin I < 0.012 Impressions: Chest X-Ray 08/02/19 00:07 IMPRESSION: Clear lungs. Assessment and Plan - Diagnosis (1) Chest pain Qualifiers: Chest pain type: unspecified Qualified Code(s): R07.9 - Chest pain, unspecified Is this a current diagnosis for this admission?: Yes Plan: Patient is admitted observation status on telemetry. Serial cardiac enzymes will be obtained to evaluate the patient's chest pain. Patient's pain will be treated with morphine sulfate 2 to 4 mg IV every 2 hours on an as needed basis per sliding scale. (2) Atrial fibrillation with controlled ventricular rate Is this a current diagnosis for this admission?: Yes Plan: Patient will be continued on his current medication for control of his atrial fibrillation ventricular rate as well as he has chronic anticoagulation. He will be observed on telemetry throughout his hospital course. (3) HLD (hyperlipidemia) Qualifiers: Hyperlipidemia type: unspecified Qualified Code(s): E78.5 - Hyperlipidemia, unspecified Is this a current diagnosis for this admission?: Yes Plan: Patient will be continued on his usual lipid therapy regiment and a cardiac diet. (4) HTN (hypertension) Qualifiers: Hypertension type: essential hypertension Qualified Code(s): I10 - Essential (primary) hypertension Is this a current diagnosis for this admission?: Yes Plan: Patient will be continued on his usual antihypertensive therapy and is blood pressure will be evaluated regularly with vital signs. - Time Time Spent with patient: 25-34 minutes Medications reviewed and adjusted accordingly: Yes Anticipated discharge: Home - Inpatient Certification Based on my medical assessment, after consideration of the patient's comorbidities, presenting symptoms, or acuity I expect that the services needed warrant INPATIENT care.: No I certify that my determination is in accordance with my understanding of Medicare's requirements for reasonable and necessary INPATIENT services [42 CFR 412.3e].: No Medical Necessity: Significant Comorbidiites Make Outpatient Treatment Too Risky, Need Close Monitoring Due to Risk of Patient Decompensation, Need For Continuous Telemetry Monitoring
[2019-08-02 04:52] LABS: CREATINE KINASE MB 1.32 ng/mL (<4.55); TROPONIN I < 0.012 ng/mL
--- NOTE | 2019-08-02 07:22 | EKG REPORT ---
SEVERITY:- BORDERLINE ECG - SINUS RHYTHM BORDERLINE INFERIOR Q WAVES : Confirmed by: Dimas Zeng MD 02-Aug-2019 07:22:05
[2019-08-02] MEDS: FAMOTIDINE 20 MG TABLET PO SCH ×2 (07:55→12:42)
[2019-08-02] MEDS: SUCRALFATE 1 GM TABLET PO SCH ×2 (07:55→12:41)
[2019-08-02] MEDS: METOCLOPRAMIDE HCL 10 MG TABLET PO SCH ×2 (07:55→12:42)
[2019-08-02] MEDS ORDERED: DOCUSATE SODIUM 100 MG CAPSULE PO SCH (10:00)
[2019-08-02] MEDS ORDERED: APIXABAN 5 MG TABLET PO SCH (10:00)
[2019-08-02] MEDS ORDERED: FAMOTIDINE 20 MG TABLET PO SCH (10:00)
[2019-08-02 11:00] LABS: TROPONIN I < 0.012 ng/mL
--- NOTE | 2019-08-02 11:40 | PDOC DISCHARGE SUMMARY ---
General - Admit/Disc Date/PCP Admission Date/Primary Care Provider: 08/02/19 02:57 MCKENZIE SCANLON MD Discharge Date: 08/02/19 - Additional Information Resuscitation Status: Full Code Discharge Diet: As Tolerated Discharge Activity: Activity As Tolerated Home Medications: Apixaban [Eliquis 5 mg Tablet] 5 mg PO BID 08/02/19 Rosuvastatin Calcium [Crestor 10 mg Tablet] 10 mg PO DAILY 08/02/19 History of Present Illness History of Present Illness: INGRID SOLIS is a 54 year old male Hospital Course Hospital Course: 54 years old white male with history of mild aortic stenosis. He was recently diagnosed with atrial fibrillation 2 weeks ago. He was started on metoprolol by his primary care physician. Dose initially was 50 mg daily then was decreased to 25 mg daily due to bradycardia. He was also started on Eliquis outpatient. He sees Dr. Rios of cardiology. Dr. Rios did a stress test a week ago but the patient does not know the results and assumes it was benign. Patient presents today for chest pain and for details please see H&P from today. He actually had similar presentation 2 weeks ago when he was diagnosed with atrial fibrillation. So far troponins are negative. He is bradycardic also. He will be discharged today in stable condition. He should follow-up with Dr. Rios. He is currently totally asymptomatic. We will stop metoprolol due to bradycardia. He still in A. fib. Discussed with patient in details and he is aware the plan and wants to go home. Physical Exam Vital Signs: Temp Pulse Resp BP Pulse Ox 98.4 F 50 L 15 118/71 100 08/02/19 08:07 08/02/19 08:07 08/02/19 08:07 08/02/19 08:07 08/02/19 08:07 Intake & Output 08/01/19 08/02/19 08/03/19 06:59 06:59 06:59 Intake Total 1000 Balance 1000 Weight 216 lb 0.848 oz Exam: Patient is no acute distress Alert oriented to time place person No anxiety or depression Head: atraumatic normocephalic Pupils: are equal reactive Neck: is supple and trachea is central no lymphadenopathy No pharyngeal erythema or exudates Heart: Irregular rhythm Lungs: clear no distress Abdomen: nontender nondistended Neurological exam: unremarkable Musculoskeletal: No joint swelling or effusion chronic lower back pain and tenderness No suicidal or homicidal ideation Results Laboratory Results: 08/02/19 00:08 08/02/19 00:08 08/02/19 08/02/19 08/02/19 00:08 00:08 00:08 WBC 6.8 RBC 4.68 Hgb 13.1 L Hct 38.8 MCV 83 MCH 28.0 MCHC 33.8 RDW 13.6 Plt Count 187 Seg Neutrophils % 53.4 Sodium 139.1 Potassium 3.8 Chloride 103 Carbon Dioxide 27 Anion Gap 9 BUN 17 Creatinine 0.87 Est GFR ( Amer) > 60 Glucose 103 Calcium 9.5 Magnesium Total Bilirubin 0.4 AST 25 Alkaline Phosphatase 60 Total Protein 6.8 Albumin 4.4 Lipase 82.7 TSH Free T4 Free T3 pg/mL Urine Color Urine Appearance Urine pH Ur Specific [place] Urine Protein Urine Glucose (UA) Urine Ketones Urine Blood Urine Nitrite Ur Leukocyte Esterase Urine WBC (Auto) Urine RBC (Auto) 08/02/19 08/02/19 08/02/19 00:08 00:08 01:08 WBC RBC Hgb Hct MCV MCH MCHC RDW Plt Count Seg Neutrophils % Sodium Potassium Chloride Carbon Dioxide Anion Gap BUN Creatinine Est GFR ( Amer) Glucose Calcium Magnesium 2.3 Total Bilirubin AST Alkaline Phosphatase Total Protein Albumin Lipase TSH 2.18 Free T4 0.74 L Free T3 pg/mL 3.99 Urine Color YELLOW Urine Appearance CLEAR Urine pH 6.0 Ur Specific [place] 1.017 Urine Protein NEGATIVE Urine Glucose (UA) NEGATIVE Urine Ketones NEGATIVE Urine Blood SMALL H Urine Nitrite NEGATIVE Ur Leukocyte Esterase NEGATIVE Urine WBC (Auto) 1 Urine RBC (Auto) 1 08/02/19 08/02/19 08/02/19 00:08 00:08 04:10 Creatine Kinase 285 H CK-MB (CK-2) 1.52 1.32 Troponin I < 0.012 < 0.012 08/02/19 08/02/19 08/02/19 04:10 09:53 09:53 Creatine Kinase 248 H 265 H CK-MB (CK-2) 1.60 Troponin I < 0.012 Impressions: Chest X-Ray 08/02/19 00:07 IMPRESSION: Clear lungs. Qualifiers - * PATIENT BEING DISCHARGED WITH ANY OF THE FOLLOWING DIAGNOSIS: No Acute Heart Failure - Is this a Heart Failure Patient?: No
[2019-08-02 12:41] VITALS: BP 139/49
== END 2019-08-02 13:00 | disposition home or self-care (01) ==
LOC: ER 23:07 → EH 08-02 02:57 → 4N 08-02 03:48
PROVIDERS: ADMIT Emergency Medicine; ATTEND Emergency Medicine
DX: I48.91 Unspecified atrial fibrillation (principal); R07.9 Chest pain, unspecified; E78.5 Hyperlipidemia, unspecified; I10 Essential (primary) hypertension; I35.0 Nonrheumatic aortic (valve) stenosis; R00.1 Bradycardia, unspecified; R11.0 Nausea; G47.30 Sleep apnea, unspecified; F17.220 Nicotine dependence, chewing tobacco, uncomplicated; Z90.49 Acquired absence of other specified parts of digestive tract; Z82.49 Family history of ischemic heart disease and other diseases of the circulatory system; Z79.82 Long term (current) use of aspirin; Z79.02 Long term (current) use of antithrombotics/antiplatelets; Z79.899 Other long term (current) drug therapy
CPT/HCPCS: 93005; 99285; 96360; 96361; 36415; 84439; 82553; 82550; 83690; 83735; 84443; 85025; 85610; 80053; 81001; 84484; 84481; 71046; 93010; G0378; J7030

== ENCOUNTER 2019-10-23 09:32 | Emergency (ER) | payer OTHER ==
--- NOTE | 2019-10-23 10:21 | ER Document Report ---
ED Neck/Back Problem - General Chief Complaint: Back Pain Stated Complaint: BACK PAIN, RIGHT LEG PAIN Time Seen by Provider: 10/23/19 10:15 Primary Care Provider: MCKENZIE SCANLON MD [Primary Care Provider] - Follow up as needed Mode of Arrival: Wheelchair Information source: Patient Notes: 54-year-old male presented to ED for complaint of lower back pain radiating down the right leg. He states is kind of a numbness feeling down the right leg. He states he has had similar pain in the past but this is the worst case of it yet so far. He states he had a little bit of pain on Wednesday after Thanksgiving he had been lifting stuff at work but it got better then he went to a hockey game on Wednesday on the way home he started feeling more pain used. In a hot shower and now it is worse today. He states he cannot take ibuprofen due to his other medications who is been taking Tylenol. He states his pain is worse than his normal. TRAVEL OUTSIDE OF THE [place] IN LAST 30 DAYS: No - HPI Patient complains to provider of: Lower back Onset: Last week Onset: Chronic Timing: Still present Quality of pain: Sharp Severity: Severe Pain Level: 5 Recent injury: No Associated symptoms: Like prior neck/back pain, Numbness/tingling, Radiation to leg, Lower back pain. denies: Incontinence, Unable to urinate Exacerbated by: Nothing Relieved by: Nothing Similar symptoms previously: Yes Recently seen / treated by doctor: Yes - Related Data Allergies/Adverse Reactions: chloraphil Allergy (Intermediate, Uncoded 08/01/19 23:09) Hives Past Medical History - General Information source: Patient - Social History Smoking Status: Former Smoker Frequency of alcohol use: Social Drug Abuse: None Lives with: Family Family History: CAD, DM, Hypertension, Other - Multiple sclerosis Patient has suicidal ideation: No Patient has homicidal ideation: No - Past Medical History Cardiac Medical History: Reports: Hx Atrial Fibrillation, Hx Hypercholesterolemia, Hx Hypertension, Hx Heart Murmur - aortic stenosis-stable Pulmonary Medical History: Reports: Hx Sleep Apnea - compliant with cpap EENT Medical History: Reports: None Neurological Medical History: Reports: None Endocrine Medical History: Reports: None Renal/ Medical History: Reports: None Malignancy Medical History: Reports None GI Medical History: Reports: Hx Gastroesophageal Reflux Disease Musculoskeletal Medical History: Reports Hx Arthritis, Reports Hx Musculoskeletal Deformity, Reports Hx Musculoskeletal Trauma Skin Medical History: Reports None Psychiatric Medical History: Reports: Hx Anxiety, Hx Depression Traumatic Medical History: Reports: Hx Fractures Past Surgical History: Reports: Hx Herniorrhaphy, Hx Orthopedic Surgery - Right 5th finger fracture repair., Other - Partial colectomy for excision of a colonic mass. Denies: Hx Pacemaker - Immunizations Immunizations up to date: No Hx Diphtheria, Pertussis, Tetanus Vaccination: No Review of Systems - Review of Systems Constitutional: No symptoms reported EENT: No symptoms reported Cardiovascular: No symptoms reported Respiratory: No symptoms reported Gastrointestinal: No symptoms reported Genitourinary: No symptoms reported Male Genitourinary: No symptoms reported Musculoskeletal: Back pain, Muscle pain Skin: No symptoms reported Hematologic/Lymphatic: No symptoms reported Neurological/Psychological: No symptoms reported -: Yes All other systems reviewed and negative Physical Exam - Vital signs Vitals: Temp Pulse Resp BP Pulse Ox 97.6 F 68 18 132/74 H 97 10/23/19 09:58 10/23/19 09:58 10/23/19 09:58 10/23/19 09:58 10/23/19 09:58 Interpretation: Normal - General General appearance: Appears well, Alert - HEENT Head: Normocephalic, Atraumatic Eyes: Normal Pupils: PERRL - Respiratory Respiratory status: No respiratory distress Chest status: Nontender Breath sounds: Normal Chest palpation: Normal - Cardiovascular Rhythm: Regular Heart sounds: Normal auscultation Murmur: No - Abdominal Inspection: Normal Distension: No distension Bowel sounds: Normal Tenderness: Nontender Organomegaly: No organomegaly - Back Back: Normal, Tender, Vertebra tenderness Notes: Signs or symptoms of cauda equina, no loss control of bowel bladder, and no saddle anesthesia, no loss of control or sensation to the lower extremities. - Extremities General upper extremity: Normal inspection, Nontender, Normal color, Normal ROM, Normal temperature General lower extremity: Normal inspection, Nontender, Normal color, Normal ROM, Normal temperature, Normal weight bearing. No: Emelyn's sign - Neurological Neuro grossly intact: Yes Cognition: Normal Orientation: AAOx4 Thorp Coma Scale Eye Opening: Spontaneous Thorp Coma Scale Verbal: Oriented Thorp Coma Scale Motor: Obeys Commands Yulia Coma Scale Total: 15 Speech: Normal Motor strength normal: LUE, RUE, LLE, RLE Sensory: Normal - Psychological Associated symptoms: Normal affect, Normal mood - Skin Skin Temperature: Warm Skin Moisture: Dry Skin Color: Normal Course - Re-evaluation Re-evalutation: 10/23/19 22:32 After performing a Medical Screening Examination, I estimate there is LOW risk for EXPANDING OR RUPTURED ABDOMINAL AORTIC ANEURYSM, CAUDA EQUINA SYNDROME, EPIDURAL MASS LESION, or HERNIATED DISK CAUSING SEVERE SPINAL STENOSIS, thus I consider the discharge disposition reasonable. I have reevaluated this patient multiple times and no significant life threatening changes are noted. The patient and I have discussed the diagnosis and risks, and we agree with discharging home and close follow-up. We also discussed returning to the Emergency Department immediately if new or worsening symptoms occur with the understanding that symptoms and presentations can change. We have discussed the symptoms which are most concerning (e.g., saddle anesthesia, urinary or bowel incontinence or retention, changing or worsening pain) that necessitate immediate return. - Vital Signs Vital signs: Temp Pulse Resp BP Pulse Ox 98.0 F 75 18 130/74 H 98 10/23/19 13:03 10/23/19 13:03 10/23/19 13:03 10/23/19 13:03 10/23/19 13:03 - Diagnostic Test Radiology reviewed: Image reviewed, Reports reviewed Discharge - Discharge Clinical Impression: Low back pain Qualifiers: Chronicity: chronic Back pain laterality: bilateral Sciatica presence: with sciatica Sciatica laterality: sciatica of right side Qualified Code(s): M54.41 - Lumbago with sciatica, right side Condition: Stable Disposition: HOME, SELF-CARE Additional Instructions: Chronic Back Pain Chronic back pain (pain persisting longer than three months) is a common problem. A medical evaluation can look for herniated disc, arthritis, osteoporosis, tumors, and infections. But at least half the time, there's no obvious treatable cause. Anxiety and depression tend to worsen back pain. Ibuprofen or other anti-inflammatory medicine can help. A heating pad, used for 15-20 minutes at a time, can ease pain. For this type of back pain, narcotic medicines should be avoided. Muscle relaxers are rarely helpful unless you're having spasms. Activity is important. Find an aerobic exercise program that your back can tolerate. Too much rest makes back pain worse. Specific back exercises are usually prescribed to strengthen the back and abdominal muscles. Often, a ph ysical therapist can help. Avoid heavy lifting, working while bent over, or standing with both knees straight. Most back pain patients do better with a firm mattress. If new symptoms of a "herniated disc" (radiation of pain, numbness, or tingling down the back of the leg or weakness in the leg) occur, you should be re-examined. STEROID MEDICATION: You have been given an injection of medicine of the cortisone/steroid class. This medication is used to control inflammation or allergy. It is often continued as a pill for a short period of time, until the acute process subsides. There are usually no side effects from short-term use of cortisone-like medications. Some persons feel an increased sense of well-being and are not sleepy at bedtime. Long-term use of cortisone medications is best avoided, unless required for a severe condition. If your condition does not remit, or relapses after the course of corticosteroid medication, you should consult your physician. Stretching Exercises for the Back The physician has recommended that you begin stretching exercises for your back. These are often used even while the back is painful. However, you should notify the physician if the activities seem to increase your pain. PELVIC TILT: Lie flat on your back with knees bent. Tighten your stomach and buttock muscles so it flattens your lower back against the floor. Hold 10 seconds. Repeat 10 times, twice daily. KNEE RAISE: Lying on the back with knees bent, raise one knee to your chest, then the other. Hold both knees against the chest 10 seconds, then lower one knee at a time. Repeat 10 times, twice daily. PARTIAL TRUNK RAISE: Lie face down, arms at your sides. Keeping your waist on the floor, use your arms raise your chest up. Support yourself on your elbows for 30 seconds. Repeat twice daily, increasing the time to two minutes as you recover. MUSCLE RELAXERS: Muscle relaxing medications are usually prescribed for acute muscle spasm or injury to the neck and back. They are often combined with antiinflammatory pain medication for increased relief. You may stop the muscle relaxer when the pain and stiffness have improved. Start the medication again if spasms recur. Muscle relaxers may cause drowsiness, especially with the first dose. Do not operate machinery or drive while under the effects of the medication. Most muscle relaxers last up to 24 hours. Do not combine the medication with alcohol. ICE PACKS: Apply ice packs frequently against the painful area. Many different schedules are recommended, such as "20 minutes on, 20 minutes off" or "one hour ice, two hours rest." If you need to work, you may need to go longer between ice treatments. You should plan to have the area ice packed AT LEAST one fourth of the time. The ice should be applied over the wrap, tape, or splint, or over a layer of cloth -- not directly against the skin. Some ice bags have a built-in cloth and can be put directly on the skin. WARM PACKS: After approximately two days, apply gentle heat (such as a heating pad or hot water bottle) for about 20 to 30 minutes about every two hours -- at least four times daily. Warmth and elevation will help you make a more rapid recovery, and will ease the pain considerably. Do not use HOT heat, and never apply heat for longer than 30 minutes. The continuous heat can invisibly damage skin and muscles -- even when no burn is seen on the surface. Damaged muscles can make you MORE sore. FOLLOW-UP CARE: If you have been referred to a physician for follow-up care, call the physicians office for an appointment as you were instructed or within the next two days. If you experience worsening or a significant change in your symptoms, notify the physician immediately or return to the Emergency Department at any time for re-evaluation. Prescriptions: Cyclobenzaprine HCl [Flexeril 10 mg Tablet] 10 mg PO TIDP PRN #15 tab PRN Reason: Lidocaine [Lidoderm 5% (700 mg) Transdermal Patch] 1 patch TP DAILY #30 adh..patch Referrals: MCKENZIE SCANLON MD [Primary Care Provider] - Follow up as needed
[2019-10-23] MEDS ORDERED: LIDOCAINE 5% (700 MG) TRANSDERMAL ADH..PATCH TP ONE (10:23)
[2019-10-23] MEDS ORDERED: DEXAMETHASONE SOD PHOS INJ 10 MG/1 ML VIAL IM ONE (10:23)
--- NOTE | 2019-10-23 11:52 | RADIOLOGY REPORT (SQ) ---
EXAM DESCRIPTION: L SPINE WHOLE COMPLETED DATE/TIME: 10/23/2019 11:40 am REASON FOR STUDY: pain radiating down right COMPARISON: None. NUMBER OF VIEWS: Five views including obliques. TECHNIQUE: AP, lateral, oblique, and sacral radiographic images acquired of the lumbar spine. LIMITATIONS: None. FINDINGS: MINERALIZATION: Normal. SEGMENTATION: Normal. No transitional anatomy. ALIGNMENT: Normal. VERTEBRAE: Maintained height. No fracture or worrisome bone lesion. DISCS: Preserved height. No significant osteophytes or end plate irregularity. POSTERIOR ELEMENTS: Pedicles and facets are intact. No pars defect or posterior arch defects. HARDWARE: None in the spine. PARASPINAL SOFT TISSUES: Normal. PELVIS: Intact as visualized. No fractures or worrisome bone lesions. SI joints intact. OTHER: No other significant finding. IMPRESSION: NORMAL 5 VIEW LUMBAR SPINE. TECHNICAL DOCUMENTATION: JOB ID: [id number] [employer]- All Rights Reserved Reading location - IP/workstation name: [email or web address]
[2019-10-23] MEDS ORDERED: HYDROCODONE/ACETAMINOPHEN 5-325 MG (6 TAB/ER DISP) PO PRN (12:09)
[2019-10-23 13:03] VITALS: BP 130/74
== END 2019-10-23 13:02 | disposition home or self-care (01) ==
LOC: ER 09:32
DX: M54.41 Lumbago with sciatica, right side (principal); G89.29 Other chronic pain; M79.10 Myalgia, unspecified site; I10 Essential (primary) hypertension; Z87.891 Personal history of nicotine dependence
CPT/HCPCS: 99283; 96374; 72110; J1100